=== PATIENT | male | born 1970 | race Caucasian/White ===

== ENCOUNTER 2022-06-26 00:21 | Day surgery (SDC) | payer OTHER, SELFPAY ==
[2022-06-09 12:43] VITALS: BMI 33.2
--- NOTE | ~2022-06-26 | XR_ITS ---
EXAMINATION: XR_ENEMABAC_CR DATE: 06/26/2022 09:50 INDICATION: Incomplete colonoscopy TECHNIQUE: A log buyer radiograph was obtained. A catheter was inserted into the patient's rectum. Contra st was infused by gravity. Gas was infused by hand pump. Fluoroscopic spot images and conventional ra diographs were obtained. Fluoroscopy exposure time was 4.2 minutes. The DAP for this procedure was 22 5.84 Gycm2. 32 images were obtained. COMPARISON: None. FINDINGS: There is no colonic stricture. No masses identified. There is no dilation of the large kaden l. A small amount of contrast refluxes into the terminal ileum, which appears normal. IMPRESSION: 1. Unremarkable barium enema. Reviewed, dictated and finalized at location A.
[2022-06-26 06:56] VITALS: BP 145/86; PULSE 63; RESP 18; TEMP 36.1; O2SAT 98; BMI 32.8
[2022-06-26] MEDS: LACTATED RINGERS 1,000 ML 150 ML IV CONT (07:04)
--- NOTE | 2022-06-26 07:05 | WPDANESEPPF ---
Anes - Initial Pre Proc Eval Procedure: Operation Date: 06/26/22 08:00 Proposed Procedures p Screening Colonoscopy - Dillon Newman MD Date/Time: 06/26/22 07:05 Surgeon: Dillon Newman MD Pre Op Diagnosis: neoplasm screening Patient Data Age: 52 Gender: M Height: 1.83 m Weight: 109.6 kg Last Vital Signs Temp 36.1 C L 06/26/22 06:56 Pulse 63 06/26/22 06:56 Resp 18 06/26/22 06:56 BP 145/86 H 06/26/22 06:56 Pulse Ox 98 06/26/22 06:56 O2 Del Method Room Air 06/26/22 06:56 Allergies Allergy/AdvReac Type Severity Reaction Status Date / Time No Known Allergies Allergy Verified 06/26/22 06:55 Home Medications Medication Instructions Recorded Confirmed Type sodium,potassium,mag sulfates 17.5 See Rx Instructions PO .COMPLEX 05/09/22 06/09/22 Rx gram-3.13 gram-1.6 gram oral soln #354 mL (Suprep Bowel Prep Kit) yitlfkrl-ujpqboca-empgi acid 400 1 tablet PO DAILY 05/24/22 06/09/22 History mcg-vit K 20 mcg-lycop 300 mcg tablet (One-A-Day Men's Multivitamin) sildenafil 100 mg tablet 100 mg PO DAILY PRN sexual 05/24/22 06/09/22 Rx activity #12 tabs Patient hx anesthesia problems: none Family hx anesthesia problems: none Results Review: All pre-operative results and documents have been reviewed as part of the pre-operative evaluation. [facility] Past Medical History Medical History Erectile dysfunction Hyperglycemia Hypogonadism KIARRA (obstructive sleep apnea) Right shoulder pain Surgical History Surgical History [place] teeth removed Family History Family History Father Bladder cancer Mother Heart disease Pacemaker Social History Social History Smoking status: Never smoker Alcohol intake: current Drinks per week: 2 Substance use: never Substance use type: does not use Living arrangements: with family Spiritual care concerns: No Anes - Eval Final PreProcedure Day of Procedure 06/26/22 07:05 Patient weight: obese Heart: regular rate and rhythm Lungs: clear to auscultation Airway: Mallampati scale class II Neurological: alert and oriented Last oral intake: >/= 8 hours ASA classification: II Emergent: no Anesthetic plan: proceed Anesthesia type and monitoring: general GIVS and standard monitoring Results Review: All pre-operative results and documents have been reviewed as part of the pre-operative evaluation. Informed Consent: The patient's anesthetic plan and its attendant risks and benefits were discussed with the patient/family/POA. Questions were solicited and answers provided to the satisfaction of the patient/family/POA.
--- NOTE | 2022-06-26 07:26 | PM.IMHP ---
H&P: HPI History of Present Illness Date/Time: 06/26/22 07:26 Chief Complaint: Neoplasia screening. Narrative: This is a 52-year-old white male patient presents for screening colonoscopy. Patient's current weight appetite and bowel movements are normal. Patient denies abdominal pain. He has had no bleeding. Family history is noncontributory. Presents today for neoplasia screening. Review of Systems Review of Systems: Review of systems noncontributory. [facility] Past Medical History Medical History Erectile dysfunction Hyperglycemia Hypogonadism KIARRA (obstructive sleep apnea) Right shoulder pain Surgical History Surgical History [place] teeth removed Family History Family History Father Bladder cancer Mother Heart disease Pacemaker Social History Social History Smoking status: Never smoker Alcohol intake: current Drinks per week: 2 Substance use: never Substance use type: does not use Living arrangements: with family Spiritual care concerns: No Meds Home Medications and Allergies Home Medications Medication Instructions Recorded Confirmed Type sodium,potassium,mag sulfates 17.5 See Rx Instructions PO .COMPLEX 05/09/22 06/09/22 Rx gram-3.13 gram-1.6 gram oral soln #354 mL (Suprep Bowel Prep Kit) onbouqup-ucalrwxr-smbnu acid 400 1 tablet PO DAILY 05/24/22 06/09/22 History mcg-vit K 20 mcg-lycop 300 mcg tablet (One-A-Day Men's Multivitamin) sildenafil 100 mg tablet 100 mg PO DAILY PRN sexual 05/24/22 06/09/22 Rx activity #12 tabs Allergies Allergy/AdvReac Type Severity Reaction Status Date / Time No Known Allergies Allergy Verified 06/26/22 06:55 Vital Signs Vital Signs - 24 hr 06/26/22 06:56 Temperature 97 F L Pulse Rate 63 Respiratory Rate 18 Blood Pressure 145/86 H Pulse Oximetry 98 Oxygen Delivery Room Air Exam Narrative: Physical exam reveals patient to be alert. Vital signs stable. HEENT exam is unremarkable. Patient is anicteric. Lungs are clear to auscultation and percussion. Heart is without murmur or extra sounds. Abdominal exam bowel sounds are present soft nontender with no organomegaly. Digital external rectal exam is normal. Assessment and Plan Assessment and plan (1) Encounter for screening colonoscopy: Code(s): Z12.11 - Encounter for screening for malignant neoplasm of colon Status: Acute Assessment and Plan: Patient presents today for screening colonoscopy. Appears to be at average risk for colon polyps. Further recommendations will be given after endoscopy.
[2022-06-26 08:25] VITALS: BP 142/78; PULSE 63; RESP 19; O2SAT 99
[2022-06-26 08:45] VITALS: BP 133/78; PULSE 67; RESP 15; O2SAT 95
--- NOTE | 2022-06-26 08:58 | SUR.PHASEII ---
Patient taken to Xray via wheelchair.
== END 2022-06-26 08:55 | disposition home or self-care (01) ==
PROVIDERS: PCP Physician Assistant Medical; Visit Provider Internal Medicine Gastroenterology
PROC: 0DJD8ZZ Inspection of Lower Intestinal Tract, Via Natural or Artificial Opening Endoscopic (ICD-10-PCS; CPT 45378; principal; 2022-06-26 08:00)
DX: Z12.11 Encounter for screening for malignant neoplasm of colon (principal); R73.9 Hyperglycemia, unspecified; G47.33 Obstructive sleep apnea (adult) (pediatric); E66.9 Obesity, unspecified; Z68.32 Body mass index [BMI] 32.0-32.9, adult
CPT/HCPCS: 45378; 74280; J2704; J7120